=== PATIENT | female | born 1965 | race Caucasian/White ===

== ENCOUNTER → 2023-06-28 06:40 | Outpatient (REF) | payer OTHER, SELFPAY | LOC: HWRAD 06:40 | PROVIDERS: ATTENDING PHYSICIAN Nurse Practitioner Family | DX: R53.83 Other fatigue (principal); R06.09 Other forms of dyspnea | CPT/HCPCS: 71046 ==

== ENCOUNTER → 2023-07-16 15:09 | Outpatient (REF) | payer OTHER, SELFPAY | LOC: HWRAD 15:09 | PROVIDERS: ATTENDING PHYSICIAN Nurse Practitioner Family | DX: R53.83 Other fatigue (principal) | CPT/HCPCS: 71260; 74177; Q9967 ==

== ENCOUNTER → 2023-12-17 13:30 | Outpatient (REF) | payer OTHER, SELFPAY | LOC: PAVMRI 13:30 | PROVIDERS: ATTENDING PHYSICIAN Nurse Practitioner Family | DX: G50.0 Trigeminal neuralgia (principal) | CPT/HCPCS: 70553; A9575 ==

== ENCOUNTER → 2024-04-29 14:10 | Outpatient (REF) | payer OTHER, SELFPAY | LOC: HWRAD 14:10 | PROVIDERS: ATTENDING PHYSICIAN Nurse Practitioner Family | DX: J40 Bronchitis, not specified as acute or chronic (principal) | CPT/HCPCS: 71046 ==